=== PATIENT | female | born 1990 | race Caucasian/White ===

== ENCOUNTER 2022-08-13 22:56 | Inpatient (IN) | payer SELFPAY ==
[2022-08-13 23:42] VITALS: BMI 50.7
[2022-08-13 23:43] VITALS: BP 143/87; PULSE 77; RESP 20; TEMP 36.7; O2SAT 100
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
[2022-08-14] MEDS: multivitamin therapeutic Tablet 1 TAB PO (09:21)
[2022-08-14] MEDS: folic acid 1 mg Tablet PO (09:21)
[2022-08-14] MEDS: thiamine 100 mg Tablet PO (09:21)
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
[2022-08-14] MEDS: fluoxetine 20 mg Capsule PO (11:53)
[2022-08-14 14:00] VITALS: BP 160/101; PULSE 89; RESP 18; TEMP 36.6; O2SAT 98
[2022-08-14 20:31] VITALS: BP 125/75; PULSE 87; RESP 18; TEMP 36.8; O2SAT 98
[2022-08-15] MEDS: fluoxetine 20 mg Capsule PO (08:11)
[2022-08-15] MEDS: multivitamin therapeutic Tablet 1 TAB PO (08:11)
[2022-08-15] MEDS: folic acid 1 mg Tablet PO (08:11)
[2022-08-15] MEDS: thiamine 100 mg Tablet PO (08:11)
[2022-08-15 14:00] VITALS: BP 143/86; PULSE 90; RESP 14; TEMP 36.5; O2SAT 97
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
[2022-08-15 22:00] VITALS: BP 121/83; PULSE 86; RESP 18; TEMP 36.9; O2SAT 97
[2022-08-16 06:00] VITALS: BP 109/73; PULSE 80; RESP 16; TEMP 36.5; O2SAT 96
[2022-08-16] MEDS: thiamine 100 mg Tablet PO (08:01)
[2022-08-16] MEDS: multivitamin therapeutic Tablet 1 TAB PO (08:01)
[2022-08-16] MEDS: fluoxetine 20 mg Capsule PO (08:01)
[2022-08-16] MEDS: folic acid 1 mg Tablet PO (08:01)
[2022-08-16 14:00] VITALS: BP 122/80; PULSE 90; RESP 16; TEMP 36.9; O2SAT 98
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
[2022-08-16 21:40] VITALS: BP 102/69; PULSE 91; RESP 17; TEMP 36.6; O2SAT 97
[2022-08-17 06:00] VITALS: BP 106/67; PULSE 79; RESP 17; TEMP 36.6; O2SAT 97
[2022-08-17] MEDS: multivitamin therapeutic Tablet 1 TAB PO (08:43)
[2022-08-17] MEDS: folic acid 1 mg Tablet PO (08:44)
[2022-08-17] MEDS: thiamine 100 mg Tablet PO (08:44)
[2022-08-17] MEDS: fluoxetine 20 mg Capsule PO (08:44)
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
[2022-08-17 10:34] VITALS: BP 106/67; PULSE 79; RESP 17; TEMP 36.6; O2SAT 97
[2022-08-17 14:00] VITALS: BP 129/79; PULSE 97; RESP 16; TEMP 36.6; O2SAT 100
== END 2022-08-17 15:25 | disposition home or self-care (01) | DRG 885 ==
PROVIDERS: Admitting Provider Psychiatry & Neurology Psychiatry; Visit Provider Psychiatry & Neurology Psychiatry
DX: F33.9 Major depressive disorder, recurrent, unspecified (principal); R45.851 Suicidal ideations; Z68.43 Body mass index [BMI] 50.0-59.9, adult; F17.210 Nicotine dependence, cigarettes, uncomplicated; F40.10 Social phobia, unspecified; E66.01 Morbid (severe) obesity due to excess calories; F41.9 Anxiety disorder, unspecified
CPT/HCPCS: 97150; 97165; 99238